=== PATIENT | male | born 1990 | race Caucasian/White ===

== ENCOUNTER 2018-12-30 07:13 | Emergency (ER) | payer OTHER ==
[~2018-12-30] VITALS: Ht 188 cm; Wt 113.6 kg
[~2018-12-30 07:13] MED LIST: NOCURR
[2018-12-30 10:30] VITALS: BP 118/67
== END 2018-12-30 10:48 | disposition home or self-care (01) ==
LOC: EMS 07:14
DX: S60.042A Contusion of left ring finger without damage to nail, initial encounter (principal); W34.010A Accidental discharge of airgun, initial encounter; Y93.89 Activity, other specified; Y92.89 Other specified places as the place of occurrence of the external cause; Y99.8 Other external cause status

== ENCOUNTER 2023-11-03 10:53 | Emergency (ER) | payer OTHER ==
[~2023-11-03] VITALS: Ht 190.5 cm; Wt 110.9 kg
[2023-11-03 10:55] VITALS: TEMP 98.3
[2023-11-03] MEDS: MORPHINE SULFATE 4 MG/ML SYRINGE IVP ONE (11:20)
[2023-11-03] MEDS: FentaNYL CITRATE PF 100 MCG/2 ML VIAL IVP ONE (12:04)
[2023-11-03 12:55] VITALS: BP 127/76; PULSE 72; RESP 16; O2SAT 98
[2023-11-03] MEDS ORDERED: OXYC-38 PO (13:02)
== END 2023-11-03 13:18 | disposition home or self-care (01) ==
LOC: EMS 10:53
DX: S43.101A Unspecified dislocation of right acromioclavicular joint, initial encounter (principal); Z98.890 Other specified postprocedural states; W19.XXXA Unspecified fall, initial encounter; Y93.89 Activity, other specified; Y92.89 Other specified places as the place of occurrence of the external cause; Y99.8 Other external cause status
CPT/HCPCS: 99284; 96374; 29105; 96375; 73030; J3010; J2270